=== PATIENT | female | born 1950 | race Caucasian/White ===

== ENCOUNTER 2016-06-25 15:24 | Emergency (ER) | payer OTHER, MEDICARE ==
[~2016-06-25] VITALS: Ht 157.5 cm; Wt 83.1 kg
[2016-06-25 16:40] LABS: HEMATOCRIT 37.3 % (36.0-46.0); MCH 28.2 PG (29.0-34.0); MCHC 32.2 G/DL (30.0-36.0); MCV 87.6 FL (83-99); MEAN PLAT.VOLUME 10.6 uM^3 (9.5-12.4); PLATELET COUNT 300 K/uL (156-360); RBC DIS.WIDTH-CV 13.2 % (11.8-14.6); RED BLOOD COUNT 4.26 M/uL (3.80-5.20); WHITE BLOOD COUNT 8.7 K/uL (4.1-10.2)
[2016-06-25 16:48] LABS: CHLORIDE 108 mEq/L (99-109); POTASSIUM 3.4 mEq/L (3.7-5.4); SODIUM 141 mEq/L (136-147)
[2016-06-25 16:49] LABS: GLUCOSE 111 mg/dL (70-99)
[2016-06-25 16:51] LABS: ANION GAP 10 MEQ/L (2-14); INTER. NORMALIZED RATIO 1.2; PROTHROMBIN TIME 11.9 (9.2-11.2); PTT 27.9 (25-32)
[2016-06-25 16:53] LABS: GFR ESTIMATE (CALCULATED) > 59 mL/min/
[2016-06-25 16:54] LABS: UREA NITROGEN (BUN) 21 mg/dL (9-23)
[2016-06-25 17:06] LABS: POINT-OF-CARE METER ID UU14100415
[2016-06-25 17:24] LABS: TROP-I INTERPRETATION NEGATIVE; TROPONIN-I < 0.01 ng/mL (0.0-0.30)
[2016-06-25] MEDS ORDERED: ZOFRAN ODT4 MG PO (17:39)
[2016-06-25 18:28] VITALS: BP 134/73
== END 2016-06-25 18:31 | disposition home or self-care (01) ==
LOC: EME 15:24
PROVIDERS: Nurse Practitioner Family
DX: R04.0 Epistaxis (principal); R55 Syncope and collapse; R06.4 Hyperventilation; I10 Essential (primary) hypertension; K21.9 Gastro-esophageal reflux disease without esophagitis; Z87.891 Personal history of nicotine dependence; Z79.82 Long term (current) use of aspirin
CPT/HCPCS: 80048; 82948; 84484; 85027; 85610; 85730; 99281; 99285; J2405; J7030